=== PATIENT | female | born 1975 | race Caucasian/White ===

== ENCOUNTER 2017-11-17 19:50 | Observation (INO) ==
[2017-11-17] MEDS ORDERED: Sod Chloride 0.9% Inj 1,000 ML IV.SIG ONE (22:22)
--- NOTE | 2017-11-17 22:39 | ED ---
HPI General Chief complaint: Skin/Abscess/Foreign Body Stated complaint: skin Time Seen by Provider: 11/17/17 22:28 History of Present Illness HPI narrative: Ms. Brandt is a 42-year-old with a history of IV drug use and endocarditis who presents to the ED with a CC of "Swelling in my right leg and foot." The swelling began one week ago and has gotten worse and associated with pain to touch and intermittent fever and chills. Related Data Allergies Allergy/AdvReac Type Severity Reaction Status Date / Time penicillin G Allergy Unknown UNKNOWN Verified 11/17/17 20:53 REACTION codeine AdvReac Intermediate NAUSEA Verified 11/17/17 20:53 *MDRO Multi-Drug Resistant AdvReac Unknown Swelling Uncoded 11/17/17 20:53 Organism Review of Systems ROS: all other systems reviewed are negative FOR[facility]LY [facility] Medical History Medical History Endocarditis (Acute) Surgical History Surgical History H/O mitral valve repair (Acute) H/O tricuspid valve repair (Acute) Social History Social History Recent Travel in [facility] within the Last 8 Weeks: No Recent Out of Country Travel within the Last 8 Weeks: No Exam Narrative Exam Narrative: GENERAL: The patient is leaning over in mild distress. Alert and oriented x4. SKIN: Warm and dry. There is erythema of the right LE and right foot. Multiple ulcerations and abscesses of the anterior chest, both upper extremities, and lower extremities. HEAD: Atraumatic. Normocephalic. EYES: Pupils equal and round. No scleral icterus. No injection or drainage. ENT: No nasal bleeding or discharge. Mucous membranes pink and moist. NECK: Trachea midline. No JVD. CARDIOVASCULAR: Regular rate and rhythm. RESPIRATORY: No accessory muscle use. Clear to auscultation. Breath sounds equal bilaterally. GASTROINTESTINAL: Abdomen soft, non-tender, nondistended. Hepatic and splenic margins not palpable. MUSCULOSKELETAL: Extremities without clubbing, cyanosis. Edema of the right LE. No obvious deformities. NEUROLOGICAL: Awake and alert. No obvious cranial nerve deficits. Motor grossly within normal limits. Five out of 5 muscle strength in the arms and legs. Normal speech. PSYCHIATRIC: Appropriate mood and affect; insight and judgment normal. Course Initial Documented Vital Signs Temperature 97.7 F 11/17/17 20:53 Pulse Rate 85 11/17/17 20:53 Respiratory Rate 20 11/17/17 20:53 Blood Pressure 119/58 L 11/17/17 20:53 Pulse Oximetry 98 11/17/17 20:53 Last Documented Vital Signs Temperature 97.7 F 11/17/17 20:53 Pulse Rate 85 11/17/17 20:53 Respiratory Rate 20 11/17/17 20:53 Blood Pressure 119/58 L 11/17/17 20:53 Pulse Oximetry 98 11/17/17 20:53 Medical Decision Making MDM Narrative Medical decision making narrative: Considering her history of recent fevers, I am concerned about possible underlying endocarditis. She has bilateral leg cellulitis. She has several ulcerated areas and small abscesses on her chest and her arms as well. IV antibiotics were initiated after cultures are drawn. Planning to admit for further evaluation for endocarditis. Case is discussed with Dr. Gallagher for admission. Medical Screen Exam Complete: Yes Emergency Medical Condition: Yes Lab Data Lab results reviewed: Yes I reviewed the patient's lab results. Result diagrams: 11/18/17 00:05 11/18/17 00:05 Lab Results 11/18/17 11/18/17 11/18/17 Range/Units 00:00 00:05 00:05 WBC 10.0 (4.0-11.0) th/mm3 RBC 4.59 (4.00-5.30) mil/mm3 Hgb 13.1 (11.6-15.3) gm/dL Hct 39.1 (35.0-46.0) % MCV 85.2 (80.0-100.0) fL MCH 28.5 (27.0-34.0) pg MCHC 33.5 (32.0-36.0) % RDW 14.3 (11.6-17.2) % Plt Count 374 (150-450) th/mm3 MPV 8.4 (7.0-11.0) fL Neut % (Auto) 52.5 (16.0-70.0) % Lymph % (Auto) 27.8 (9.0-44.0) % [place] % (Auto) 11.8 H (0.0-8.0) % Eos % (Auto) 6.8 H (0.0-4.0) % Baso % (Auto) 1.1 (0.0-2.0) % Neut # (Auto) 5.2 (1.8-7.7) th/mm3 Lymph # (Auto) 2.8 (1.0-4.8) th/mm3 [place] # (Auto) 1.2 H (0.0-0.9) th/mm3 Eos # (Auto) 0.7 H (0.0-0.4) th/mm3 Baso # (Auto) 0.1 (0.0-0.2) th/mm3 WBC Differential . Differential Comment Auto diff final Sodium 136 (136-145) meq/L Potassium 3.4 L (3.5-5.1) meq/L Chloride 96 L (98-107) meq/L Carbon Dioxide 31.2 (21.0-32.0) meq/L Anion Gap 9 (5-15) meq/L BUN 10 (7-18) mg/dL Creatinine 0.86 (0.50-1.00) mg/dL Estimated GFR 72 L (>89) mL/min Random Glucose 79 (74-106) mg/dL Lactic Acid 1.0 (0.4-2.0) mmol/L Calcium 8.6 (8.5-10.1) mg/dL Total Bilirubin 0.7 (0.2-1.0) mg/dL AST 19 (15-37) U/L ALT 17 (10-53) U/L Alkaline Phosphatase 66 (45-117) U/L Troponin I Total Protein 8.6 H (6.4-8.2) g/dL Albumin 2.9 L (3.4-5.0) g/dL 11/18/17 Range/Units 00:05 WBC (4.0-11.0) th/mm3 RBC (4.00-5.30) mil/mm3 Hgb (11.6-15.3) gm/dL Hct (35.0-46.0) % MCV (80.0-100.0) fL MCH (27.0-34.0) pg MCHC (32.0-36.0) % RDW (11.6-17.2) % Plt Count (150-450) th/mm3 MPV (7.0-11.0) fL Neut % (Auto) (16.0-70.0) % Lymph % (Auto) (9.0-44.0) % [place] % (Auto) (0.0-8.0) % Eos % (Auto) (0.0-4.0) % Baso % (Auto) (0.0-2.0) % Neut # (Auto) (1.8-7.7) th/mm3 Lymph # (Auto) (1.0-4.8) th/mm3 [place] # (Auto) (0.0-0.9) th/mm3 Eos # (Auto) (0.0-0.4) th/mm3 Baso # (Auto) (0.0-0.2) th/mm3 WBC Differential Differential Comment Sodium (136-145) meq/L Potassium (3.5-5.1) meq/L Chloride (98-107) meq/L Carbon Dioxide (21.0-32.0) meq/L Anion Gap (5-15) meq/L BUN (7-18) mg/dL Creatinine (0.50-1.00) mg/dL Estimated GFR (>89) mL/min Random Glucose (74-106) mg/dL Lactic Acid (0.4-2.0) mmol/L Calcium (8.5-10.1) mg/dL Total Bilirubin (0.2-1.0) mg/dL AST (15-37) U/L ALT (10-53) U/L Alkaline Phosphatase (45-117) U/L Troponin I Cancelled Total Protein (6.4-8.2) g/dL Albumin (3.4-5.0) g/dL Imaging Data Attestation: I personally reviewed and interpreted this imaging study as follows : Radiologist's impression: Venous Doppler Study 11/17/17 22:22 CONCLUSION: 1. The study is negative for lower extremity deep venous thrombosis. Discharge Plan Discharge Disposition Patient Disposition: 30 Still Patient Discharge Condition Condition: Stable Discharge Details Anticipated Discharge Date: 11/18/17 Diagnosis: Bilateral cellulitis of lower leg, Endocarditis Physicians Team ED Provider: Lisa Zhang Primary Care Provider: Primary Care Bianca Palm Attending Provider: Jodi Gallagher Status ED Status: Admitted Patient
--- NOTE | 2017-11-17 22:49 | US ---
EXAM DATE: 11/17/2017 10:46 PM EDT AGE/SEX: 42 years / Female INDICATIONS: Right leg swelling. CLINICAL DATA: This is the patient's initial encounter. Patient reports that signs and symptoms have been present for 2 weeks and indicates a pain score of 4/10. MEDICAL/SURGICAL HISTORY: . Endocarditis. . Mitral valve repair. Tricuspid valve repair. COMPARISON: No prior exams available for comparison. TECHNIQUE: Venous ultrasound of both lower extremities was performed from the inguinal ligament to t he proximal calf. Real-time, color Doppler and spectral tracing, compression and augmentation techni ques were used. FINDINGS: Normal compression of the deep venous system from the inguinal region to the proximal calf . No echogenic clot is seen. Normal response of the venous system to augmentation and respiration. CONCLUSION: 1. The study is negative for lower extremity deep venous thrombosis. Electronically signed by: Brian Montoya MD 11/17/2017 10:48 PM EDT
[2017-11-18 00:23] LABS: Baso # (Auto) 0.1 th/mm3 (0.0-0.2); Baso % (Auto) 1.1 % (0.0-2.0); Eos # (Auto) 0.7 th/mm3 (0.0-0.4); Eos % (Auto) 6.8 % (0.0-4.0); Hematocrit 39.1 % (35.0-46.0); Hemoglobin 13.1 gm/dL (11.6-15.3); Lymph # (Auto) 2.8 th/mm3 (1.0-4.8); Lymph % (Auto) 27.8 % (9.0-44.0); Mean Corpuscular HGB Conc 33.5 % (32.0-36.0); Mean Corpuscular Hemoglobin 28.5 pg (27.0-34.0); Mean Corpuscular Volume 85.2 fL (80.0-100.0); Mean Platelet Volume 8.4 fL (7.0-11.0); Mono # (Auto) 1.2 th/mm3 (0.0-0.9); Mono % (Auto) 11.8 % (0.0-8.0); Neut # (Auto) 5.2 th/mm3 (1.8-7.7); Neut % (Auto) 52.5 % (16.0-70.0); Platelet Count 374 th/mm3 (150-450); Red Blood Count 4.59 mil/mm3 (4.00-5.30); Red Cell Distribution Width 14.3 % (11.6-17.2)
[2017-11-18] MEDS ORDERED: Dalbavancin Inj 1,500 MG in Dextrose 5% in Water Inj 500 ML IV.SIG STA ×2 (00:26)
[2017-11-18 00:47] LABS: Alanine Aminotransferase 17 U/L (10-53); Albumin 2.9 g/dL (3.4-5.0); Anion Gap 9 meq/L (5-15); Aspartate Aminotransferase 19 U/L (15-37); Blood Urea Nitrogen 10 mg/dL (7-18); Calcium 8.6 mg/dL (8.5-10.1); Carbon Dioxide 31.2 meq/L (21.0-32.0); Chloride 96 meq/L (98-107); Glomerular Filtration Rate 72 mL/min (>89); Glucose,Random 79 mg/dL (74-106); Potassium 3.4 meq/L (3.5-5.1); Sodium 136 meq/L (136-145)
[2017-11-18 00:49] LABS: Alkaline Phosphatase 66 U/L (45-117); Total Protein 8.6 g/dL (6.4-8.2)
[2017-11-18] MEDS ORDERED: Vancomycin Consult Pharmacy OTHER PRN (03:26)
[2017-11-18] MEDS ORDERED: Bisacodyl 10 MG Supp RECTAL PRN (03:28)
[2017-11-18] MEDS ORDERED: Acetaminophen 325 MG Tablet PO PRN (03:28)
[2017-11-18] MEDS ORDERED: Sod Chloride 0.9% Inj 1,000 ML IV.CONT SCH (03:30)
--- NOTE | 2017-11-18 03:42 | P.HP ---
History of Present Illness Service: [facility] Primary Care Physician: No Primary Care Physician History of Present Illness: 42-year-old female with a past medical history significant for IV drug abuse and previous endocarditis status post open heart surgery for vegetation removal presents to the emergency department for the evaluation of lower extremity sores that are painful. The patient reports she has had intermittent fevers and chills 1 week. She denies any chest pain or shortness of breath. She reports using IV methamphetamine with last use approximately 1 week ago. After her previous history of endocarditis, the patient was clean for 6 months and started using IV methamphetamine again approximately 3 weeks ago. She reports pain all over her body. She denies any chest pain or shortness of breath. No abdominal pain. No nausea/vomiting/diarrhea. No back pain. No neurologic signs/symptoms. Inpatient Certification: I certify that the inpatient services were ordered in accordance with Medicare regulations governing the order. This includes certification that hospital inpatient services are reasonable and necessary and in the case of services not specified as inpatient-only under 42 CFR 419.22(n), that they are appropriately provided as inpatient services in accordance to with the 2-midnight benchmark under 43 CFR 412.3(e) Review of Systems All other systems reviewed negative except as stated in HPI PMFSH - History History Provided By: Patient - Medical History Medical History: Medical History (Last Reviewed 11/18/17 @ 01:50 by Lisa Zhang MD) Endocarditis - Surgical History Surgical History: Surgical History (Last Reviewed 11/18/17 @ 01:50 by Lisa Zhang MD) H/O mitral valve repair H/O tricuspid valve repair - Family History Family History: Family History (Last Updated 11/18/17 @ 03:33 by Jodi Gallagher MD) Other Family history normal - Travel History Recent Travel in the [place] Within the Last 8 Weeks: No Recent Travel Out of the Country Within the Last 8 Weeks: No Medications and Allergies Allergies Allergy/AdvReac Type Severity Reaction Status Date / Time penicillin G Allergy Unknown UNKNOWN Verified 11/17/17 20:53 REACTION codeine AdvReac Intermediate NAUSEA Verified 11/17/17 20:53 *MDRO Multi-Drug Resistant AdvReac Unknown Swelling Uncoded 11/17/17 20:53 Organism Exam Vital signs: Vital Signs 11/17/17 20:53 Temperature 97.7 F Pulse Rate 85 Respiratory Rate 20 Blood Pressure 119/58 L Pulse Oximetry 98 Intake & Output 11/17/17 11/17/17 11/18/17 06:59 18:59 06:59 Intake Total 1000 / 1000 Balance 1000 / 1000 Weight 63.503 kg Intake: IV 999 / 999 Narrative: Gen.: No acute distress Head: Normocephalic. Atraumatic. EENT: Pupils equal round and reactive to light. Nose without drainage. Airway intact. Throat without injection. Cardiovascular: Regular rate and rhythm. No murmurs, rubs or gallops. Respiratory: Lungs clear to auscultation bilaterally. No wheezes or rhonchi. Abdomen: Soft, nontender, nondistended. No peritoneal signs. Musculoskeletal: No gross deformities. No edema. Skin: Multiple skin wounds in various stages of healing on the bilat LE. No obvious areas of drainage. Erythema and edema in LE, worse on the right. Neuro: Sensory and motor grossly intact. Cranial nerves II through XII grossly intact. Results - Labs CBC & Chem 7: 11/18/17 00:05 11/18/17 00:05 Labs: Laboratory Results - last 24 hr 11/18/17 11/18/17 11/18/17 00:00 00:05 00:05 WBC 10.0 RBC 4.59 Hgb 13.1 Hct 39.1 MCV 85.2 MCH 28.5 MCHC 33.5 RDW 14.3 Plt Count 374 MPV 8.4 Neut % (Auto) 52.5 Lymph % (Auto) 27.8 [place] % (Auto) 11.8 H Eos % (Auto) 6.8 H Baso % (Auto) 1.1 Neut # (Auto) 5.2 Lymph # (Auto) 2.8 [place] # (Auto) 1.2 H Eos # (Auto) 0.7 H Baso # (Auto) 0.1 WBC Differential . Differential Comment Auto diff final Sodium 136 Potassium 3.4 L Chloride 96 L Carbon Dioxide 31.2 Anion Gap 9 BUN 10 Creatinine 0.86 Estimated GFR 72 L Random Glucose 79 Lactic Acid 1.0 Calcium 8.6 Total Bilirubin 0.7 AST 19 ALT 17 Alkaline Phosphatase 66 Troponin I Less than 0.02 L Total Protein 8.6 H Albumin 2.9 L 11/18/17 00:05 WBC RBC Hgb Hct MCV MCH MCHC RDW Plt Count MPV Neut % (Auto) Lymph % (Auto) [place] % (Auto) Eos % (Auto) Baso % (Auto) Neut # (Auto) Lymph # (Auto) [place] # (Auto) Eos # (Auto) Baso # (Auto) WBC Differential Differential Comment Sodium Potassium Chloride Carbon Dioxide Anion Gap BUN Creatinine Estimated GFR Random Glucose Lactic Acid Calcium Total Bilirubin AST ALT Alkaline Phosphatase Troponin I Cancelled Total Protein Albumin - Imaging Impressions Venous Doppler Study 11/17/17 22:22 CONCLUSION: 1. The study is negative for lower extremity deep venous thrombosis. Caprini VTE Risk Assessment Caprini VTE Risk Assessment: No/Low Risk (score <= 1) Caprini Risk Assessment Model: Point Value = 1 Point Value = 2 Point Value = 3 Point Value = 5 Age 41-60 Minor surgery BMI > 25 kg/m2 Swollen legs Varicose veins or History of unexplained or recurrent spontaneous Oral contraceptives or hormone replacement Sepsis (< 1 month) Serious lung disease, including pneumonia (< 1 month) Abnormal pulmonary function Acute myocardial infarction Congestive heart failure (< 1 month) History of inflammatory bowel disease Medical patient at bed rest Age 61-74 Arthroscopic surgery Major open surgery (> 45 min) Laparoscopic surgery (> 45 min) Malignancy Confined to bed (> 72 hours) Immobilizing plaster cast Central venous access Age >= 75 History of VTE Family history of VTE Factor V Leiden Prothrombin [id number] Lupus anticoagulant Anticardiolipin antibodies Elevated serum homocysteine Heparin-induced thrombocytopenia Other congenital or acquired thrombophilia Stroke (< 1 month) Elective arthroplasty Hip, pelvis, or leg fracture Acute spinal cord injury (< 1 month) Prophylaxis Regimen: Total Risk Factor Score Risk Level Prophylaxis Regimen 0-1 Low Early ambulation 2 Moderate Order ONE of the following: *Sequential Compression Device (SCD) *Heparin 5000 units SQ BID 3-4 Higher Order ONE of the following medications: *Heparin 5000 units SQ TID *Enoxaparin/Lovenox 40 mg SQ daily (WT < 150 kg, CrCl > 30 mL/min) *Enoxaparin/Lovenox 30 mg SQ daily (WT < 150 kg, CrCl > 10-29 mL/min) *Enoxaparin/Lovenox 30 mg SQ BID (WT < 150 kg, CrCl > 30 mL/min) AND/OR *Sequential Compression Device (SCD) 5 or more Highest Order ONE of the following medications: *Heparin 5000 units SQ TID (Preferred with Epidurals) *Enoxaparin/Lovenox 40 mg SQ daily (WT < 150 kg, CrCl > 30 mL/min) *Enoxaparin/Lovenox 30 mg SQ daily (WT < 150 kg, CrCl > 10-29 mL/min) *Enoxaparin/Lovenox 30 mg SQ BID (WT < 150 kg, CrCl > 30 mL/min) AND *Sequential Compression Device (SCD) Assessment and Plan - Plan Assessment/Plan: 1. Fever/Cellulitis/Can not rule out endocarditis Blood cultures pending Echo pending Vancomycin/Zosyn Consult infectious disease if cultures/echo positive 2. IV drug abuse Patient counseling provided FEN Regular diet Electrolytes: Monitor and replete as needed NS at 100 cc/hour
[2017-11-18] MEDS: Piperacil/Tazo 3.375 GM Premix 50 ML IV.SIG SCH ×2 (06:09→09:25)
[2017-11-18] MEDS: Sod Chloride 0.9% Inj 1,000 ML IV.CONT SCH ×2 (06:10→17:04)
[2017-11-18] MEDS: Senna/Docusate Sodium 8.6/50 MG Tablet PO SCH ×2 (09:25→21:05)
--- NOTE | 2017-11-18 10:07 | P.PN ---
Subjective Interval history: follow up for cellulitis: Patient sleeping with significant other in bed. Awakes to voice, complains of pain to both legs however greater on the right. Has some open ulcers to the right lateral aspect of the leg. Indicates that she shoots on her legs. Has prior history of endocarditis and currently using IV drugs. Denies any chest pain, no shortness of breath. No fever overnight. No nausea, no vomiting, no diarrhea. Physical Exam Vital signs: Vital Signs 11/17/17 20:53 11/18/17 04:13 11/18/17 04:53 Temperature 97.7 F 98.5 F Pulse Rate 85 85 90 Respiratory Rate 20 16 Blood Pressure 119/58 L 108/55 L Pulse Oximetry 98 98 11/18/17 08:00 Temperature 98.0 F Pulse Rate 64 Respiratory Rate 12 Blood Pressure 106/63 Pulse Oximetry 91 L Intake & Output 11/17/17 11/18/17 11/18/17 18:59 06:59 18:59 Intake Total 2049 50 / 50 Balance 2049 50 / 50 Weight 45.359 kg Intake: IV 1500 / 1500 50 / 50 Zosyn 3.375 GM Premix 50 ML @ 50 / 50 100 mls/hr IV.SIG Q6H STARR Rx#: [id number] Oral 550 / 550 Other: # Voids 1 Weight On Admission 63.503 kg Narrative: GENERAL: 42-year-old female, sleeping, wakes to voice. No apparent distress. SKIN: Bilateral lower extremities with erythema and swelling, right leg greater than left. Has open sores to the right lateral aspect of the leg. Nondraining. Has also sores on her right face and chin as well as right forearm. HEAD: Atraumatic. Normocephalic. EYES: Pupils equal and round. No scleral icterus. No injection or drainage. ENT: No nasal bleeding or discharge. Mucous membranes pink and moist. NECK: Trachea midline. No JVD. CARDIOVASCULAR: Regular rate and rhythm. RESPIRATORY: No accessory muscle use. Clear to auscultation. Breath sounds equal bilaterally. GASTROINTESTINAL: Abdomen soft, non-tender, nondistended. Hepatic and splenic margins not palpable. MUSCULOSKELETAL: Extremities without clubbing, cyanosis. Bilateral lower extremity with 1+ edema on the right, trace to the left. Pedal pulses 2+. No obvious deformities. NEUROLOGICAL: Awakes to voice, oriented 3. No focal deficits. PSYCHIATRIC: Appropriate mood and affect; insight and judgment normal. Results - Labs CBC & Chem 7: 11/18/17 00:05 11/18/17 00:05 Laboratory Results - last 24 hr 11/18/17 11/18/17 11/18/17 00:00 00:05 00:05 WBC 10.0 RBC 4.59 Hgb 13.1 Hct 39.1 MCV 85.2 MCH 28.5 MCHC 33.5 RDW 14.3 Plt Count 374 MPV 8.4 Neut % (Auto) 52.5 Lymph % (Auto) 27.8 [place] % (Auto) 11.8 H Eos % (Auto) 6.8 H Baso % (Auto) 1.1 Neut # (Auto) 5.2 Lymph # (Auto) 2.8 [place] # (Auto) 1.2 H Eos # (Auto) 0.7 H Baso # (Auto) 0.1 WBC Differential . Differential Comment Auto diff final Sodium 136 Potassium 3.4 L Chloride 96 L Carbon Dioxide 31.2 Anion Gap 9 BUN 10 Creatinine 0.86 Estimated GFR 72 L Random Glucose 79 Lactic Acid 1.0 Calcium 8.6 Total Bilirubin 0.7 AST 19 ALT 17 Alkaline Phosphatase 66 Troponin I Less than 0.02 L Total Protein 8.6 H Albumin 2.9 L 11/18/17 00:05 WBC RBC Hgb Hct MCV MCH MCHC RDW Plt Count MPV Neut % (Auto) Lymph % (Auto) [place] % (Auto) Eos % (Auto) Baso % (Auto) Neut # (Auto) Lymph # (Auto) [place] # (Auto) Eos # (Auto) Baso # (Auto) WBC Differential Differential Comment Sodium Potassium Chloride Carbon Dioxide Anion Gap BUN Creatinine Estimated GFR Random Glucose Lactic Acid Calcium Total Bilirubin AST ALT Alkaline Phosphatase Troponin I Cancelled Total Protein Albumin - Imaging Impressions Venous Doppler Study 11/17/17 22:22 CONCLUSION: 1. The study is negative for lower extremity deep venous thrombosis. Assessment and Plan - Assessment (1) IVDU (intravenous drug user) Code(s): F19.90 - Other psychoactive substance use, unspecified, uncomplicated Status: Acute (2) Bilateral cellulitis of lower leg Code(s): L03.116 - Cellulitis of left lower limb; L03.115 - Cellulitis of right lower limb Status: Acute (3) History of endocarditis Code(s): Z86.79 - Personal history of other diseases of the circulatory system Status: Acute - Plan Assessment/Plan: 42-year-old female with a past medical history significant for IV drug abuse and previous endocarditis status post open heart surgery for vegetation removal presents to the emergency department for the evaluation of lower extremity sores that are painful. The patient reports she had intermittent fevers and chills 1 week. Reported using IV methamphetamine with last use approximately 1 week ago. After her previous history of endocarditis, the patient was clean for 6 months and started using IV methamphetamine again approximately 3 weeks ago. Reported fever with findings of cellulitis RLE, has sores on RLE, face. R/O endocarditis. Prior hx of sepsis, endocarditis, resp. failure, septic emboli. Patient received Dalvance in the emergency room Ultrasound of the right lower extremity negative for DVT -Continue with normal saline at 100 hour -Follow blood cultures, so far negative -Echo pending -Discontinue Zosyn, patient received Dalvance in the emergency room -Consult infectious disease if cultures/echo positive IV drug abuse -Patient counseling provided Follow-up on cultures, possible discharge tomorrow
--- NOTE | 2017-11-18 14:43 | ECHRPT ---
Indication: Sepsis Possible Endocarditis CONCLUSIONS Normal left ventricular size. Wall thickness is normal. No regional wall motion abnormalities are present. The mitral valve is not well visualized. Mild thickening of the mitral valve leaflets. Mild mitral valve regurgitation. Mild thickening of the tricuspid valve leaflets. The tricuspid valve is not well visualized. Moderate thickening of the tricuspid valve leaflets. There is moderate tricuspid regurgitation. The estimated pulmonary arterial pressure is 45.5 mmHg. The pulmonary valve is not well visualized. BP: / HR: Rhythm: MEASUREMENTS (Male / Female) Normal Values Technical Quality:Good 2D ECHO LV Diastolic Diameter PLAX 3.9 cm 4.2 - 5.9 / 3.9 - 5.3 cm LV Systolic Diameter PLAX 2.6 cm IVS Diastolic Thickness 1.0 cm 0.6 - 1.0 / 0.6 - 0.9 cm LVPW Diastolic Thickness 1.0 cm 0.6 - 1.0 / 0.6 - 0.9 cm LV Relative Wall Thickness 0.5 RV Internal Dim ED PLAX 2.4 cm LVOT Diameter 1.9 cm Aortic Root Diameter 2.3 cm LA Systolic Diameter LX 3.0 cm 3.0 - 4.0 / 2.7 - 3.8 cm M-MODE AV Cusp Separation MM 1.9 cm DOPPLER AV Peak Velocity 167.0 cm/s AV Peak Gradient 11.2 mmHg LVOT Peak Velocity 122.0 cm/s LVOT Peak Gradient 6.0 mmHg AV Area Cont Eq pk 2.1 cm Mitral E Point Velocity 194.0 cm/s Mitral A Point Velocity 172.0 cm/s Mitral E to A Ratio 1.1 LV E' Lateral Velocity 9.0 cm/s Mitral E to LV E' Lateral Ratio 21.6 LV E' Septal Velocity 6.1 cm/s Mitral E to LV E' Septal Ratio 31.6 TR Peak Velocity 298.0 cm/s TR Peak Gradient 35.5 mmHg Right Atrial Pressure 10.0 mmHg Pulmonary Artery Systolic Pressu 45.5 mmHg Right Ventricular Systolic Press 45.5 mmHg PV Peak Velocity 128.0 cm/s PV Peak Gradient 6.6 mmHg FINDINGS LEFT VENTRICLE Normal left ventricular size. Wall thickness is normal. The left ventricular systolic function is normal with an estimated ejection fraction in the range of 60-65%. No regional wall motion abnormalities are present. RIGHT VENTRICLE Normal right ventricular size and systolic function. LEFT ATRIUM The left atrial size is normal. RIGHT ATRIUM The right atrial size is normal. ATRIAL SEPTUM Normal atrial septal thickness without atrial level shunting by limited color doppler interrogation. AORTA The aortic root and proximal ascending aorta are normal in size on limited imaging. MITRAL VALVE The mitral valve is not well visualized. Mild thickening of the mitral valve leaflets. Mild mitral valve regurgitation. AORTIC VALVE Trileaflet aortic valve. No aortic valve stenosis or regurgitation. TRICUSPID VALVE Mild thickening of the tricuspid valve leaflets. The tricuspid valve is not well visualized. Moderate thickening of the tricuspid valve leaflets. There is moderate tricuspid regurgitation. The estimated pulmonary arterial pressure is 45.5 mmHg. PULMONARY VALVE The pulmonary valve is not well visualized. VESSELS The inferior vena cava is normal in size. PERICARDIUM No pericardial effusion. Jefe Hoang MD, FACC (Electronically Signed) Final Date:18 November 2017 14:42
[2017-11-19] MEDS: Sod Chloride 0.9% Inj 1,000 ML IV.CONT SCH (00:51)
[2017-11-19] MEDS ORDERED: Ketorolac Inj 30 MG/ML (IVP) Vial IV.PUSH PRN (08:44)
[2017-11-19] MEDS: Senna/Docusate Sodium 8.6/50 MG Tablet PO SCH (09:18)
[2017-11-19 10:37] LABS: Anion Gap 10 meq/L (5-15); Blood Urea Nitrogen 5 mg/dL (7-18); Calcium 7.9 mg/dL (8.5-10.1); Chloride 104 meq/L (98-107); Glomerular Filtration Rate Greater Than 89 mL/min (>89); Glucose,Random 73 mg/dL (74-106); Potassium 3.8 meq/L (3.5-5.1); Sodium 140 meq/L (136-145)
--- NOTE | 2017-11-19 11:09 | P.PN ---
Subjective Interval history: follow up for cellulitis: Patient awake, oriented 3. Indicates Tylenol is not working for right leg pain. Requesting Toradol. No fever, no chills. No nausea, no vomiting. No diarrhea. Denies any chest pain, shortness of breath. Physical Exam Vital signs: Vital Signs 11/18/17 11:55 11/18/17 11:56 11/18/17 11:58 Temperature 97.7 F Pulse Rate 66 70 Respiratory Rate 18 18 Blood Pressure 103/62 Pulse Oximetry 95 11/18/17 15:23 11/18/17 19:39 11/18/17 20:00 Temperature 98.1 F 98.0 F Pulse Rate 63 70 64 Respiratory Rate 18 18 16 Blood Pressure 98/56 L 107/59 L Pulse Oximetry 95 94 L 11/18/17 23:39 11/18/17 23:54 11/19/17 04:00 Temperature 98.7 F Pulse Rate 78 97 H 90 Respiratory Rate 20 Blood Pressure 113/68 Pulse Oximetry 96 11/19/17 04:12 11/19/17 08:37 Temperature 98.7 F 98.5 F Pulse Rate 89 74 Respiratory Rate 20 18 Blood Pressure 108/54 L 116/59 L Pulse Oximetry 92 L 97 Intake & Output 11/18/17 11/19/17 11/19/17 18:59 06:59 18:59 Intake Total 1600 / 1600 1680 / 1680 1100 / 1100 Balance 1600 / 1600 1680 / 1680 1100 / 1100 Intake: IV 1100 / 1100 1000 / 1000 600 / 600 NS Inj 1,000 ML @ 100 mls/hr IV 1000 / 1000 1000 / 1000 600 / 600 .CONT .Q10H [facility] Rx#:[id number] Zosyn 3.375 GM Premix 50 ML @ 100 / 100 100 mls/hr IV.SIG Q6H [facility] Rx#: [id number] Oral 500 / 500 680 / 680 500 / 500 Other: # Voids 3 Narrative: GENERAL: 42-year-old female, sleeping, wakes to voice. No apparent distress. SKIN: Bilateral lower extremities with erythema and swelling, right leg greater than left. Has open sores to the right lateral aspect of the leg. Nondraining. Has also sores on her right face and chin as well as right forearm. HEAD: Atraumatic. Normocephalic. EYES: Pupils equal and round. No scleral icterus. No injection or drainage. ENT: No nasal bleeding or discharge. Mucous membranes pink and moist. NECK: Trachea midline. No JVD. CARDIOVASCULAR: Regular rate and rhythm. RESPIRATORY: No accessory muscle use. Clear to auscultation. Breath sounds equal bilaterally. GASTROINTESTINAL: Abdomen soft, non-tender, nondistended. Hepatic and splenic margins not palpable. MUSCULOSKELETAL: Extremities without clubbing, cyanosis. Bilateral lower extremity with 1+ edema on the right, trace to the left. Erythema to right leg from ankle to below knee area. Unchanged. Tender to palpation. Pedal pulses 2 +. No obvious deformities. NEUROLOGICAL: Awakes to voice, oriented 3. No focal deficits. PSYCHIATRIC: Appropriate mood and affect; insight and judgment normal. Results - Labs CBC & Chem 7: 11/18/17 00:05 11/19/17 08:30 Laboratory Results - last 24 hr 11/19/17 08:30 Sodium 140 Potassium 3.8 Chloride 104 D Carbon Dioxide 26.0 Anion Gap 10 BUN 5 L Creatinine 0.67 Estimated GFR Greater than 89 Random Glucose 73 L Calcium 7.9 L Microbiology 11/18/17 00:05 Blood - Line Aerobic Blood Culture - Preliminary No growth in 1 day 11/18/17 00:05 Blood - Line Anaerobic Blood Culture - Preliminary No growth in 1 day 11/17/17 23:55 Blood - Line Aerobic Blood Culture - Preliminary No growth in 1 day 11/17/17 23:55 Blood - Line Anaerobic Blood Culture - Preliminary No growth in 1 day Assessment and Plan - Assessment (1) IVDU (intravenous drug user) Code(s): F19.90 - Other psychoactive substance use, unspecified, uncomplicated Status: Acute (2) Bilateral cellulitis of lower leg Code(s): L03.116 - Cellulitis of left lower limb; L03.115 - Cellulitis of right lower limb Status: Acute (3) History of endocarditis Code(s): Z86.79 - Personal history of other diseases of the circulatory system Status: Acute - Plan Assessment/Plan: 42-year-old female with a past medical history significant for IV drug abuse and previous endocarditis status post open heart surgery for vegetation removal presents to the emergency department for the evaluation of lower extremity sores that are painful. The patient reports she had intermittent fevers and chills 1 week. Reported using IV methamphetamine with last use approximately 1 week ago. After her previous history of endocarditis, the patient was clean for 6 months and started using IV methamphetamine again approximately 3 weeks ago. Reported fever with findings of cellulitis RLE, has sores on RLE, face. R/O endocarditis. Prior hx of sepsis, endocarditis, resp. failure, septic emboli. Patient received Dalvance in the emergency room Ultrasound of the right lower extremity negative for DVT -Continue with normal saline at 100 hour -Follow blood cultures, so far negative -Echo EF 60-65%. No vegetation. -Discontinued Zosyn, patient received Dalvance in the emergency room -Patient instructed to keep right leg elevated, avoid injecting. Will give Toradol 30 mg IV q 6 prn IV drug abuse -Patient counseling provided. Patient indicates she is dry before, does not seem very motivated. Patient okay for discharge, no leukocytosis, no fever. Patient instructed to come back to the emergency room if erythema worsens and develops fever and chills Instructed to abstain from drug use and injecting Follow-up at [facility]
[2017-11-19 12:42] LABS: Baso # (Auto) 0.1 th/mm3 (0.0-0.2); Baso % (Auto) 1.2 % (0.0-2.0); Eos # (Auto) 0.6 th/mm3 (0.0-0.4); Eos % (Auto) 5.6 % (0.0-4.0); Hematocrit 38.8 % (35.0-46.0); Hemoglobin 12.4 gm/dL (11.6-15.3); Lymph # (Auto) 2.1 th/mm3 (1.0-4.8); Lymph % (Auto) 20.3 % (9.0-44.0); Mean Corpuscular Hemoglobin 27.7 pg (27.0-34.0); Mean Corpuscular Volume 86.4 fL (80.0-100.0); Mean Platelet Volume 9.2 fL (7.0-11.0); Mono # (Auto) 1.1 th/mm3 (0.0-0.9); Mono % (Auto) 11.1 % (0.0-8.0); Neut # (Auto) 6.4 th/mm3 (1.8-7.7); Neut % (Auto) 61.8 % (16.0-70.0); Platelet Count 332 th/mm3 (150-450); Red Blood Count 4.49 mil/mm3 (4.00-5.30); Red Cell Distribution Width 14.6 % (11.6-17.2); White Blood Count 10.4 th/mm3 (4.0-11.0)
[2017-11-19 13:21] LABS: Platelet Estimate Normal (Normal); Platelet Morphology Normal (Normal)
== END 2017-11-19 14:46 | disposition home or self-care (01) ==
LOC: NEPE 19:50 → INTOOBSV 11-18 01:15 → NEDA 11-18 01:15 → NEPFCDU 11-18 05:09
PROVIDERS: ADMIT Hospitalist; ATTEND Hospitalist